=== PATIENT | female | born 1970 | race Caucasian/White ===

== ENCOUNTER → 2020-11-24 | Outpatient (CLI) | payer OTHER ==
[~2020-11-24] MED LIST: ATORVASTATIN CA10 MG PO; GLIMEPIRIDE4 MG PO; LEVOTHYROXINE50 MCG PO; VENTOLIN HFA18 GM INH
== END ==
LOC: US 07:52
PROVIDERS: ATTEND Surgery
DX: K80.20 Calculus of gallbladder without cholecystitis without obstruction (principal); K76.0 Fatty (change of) liver, not elsewhere classified
CPT/HCPCS: 76705

== ENCOUNTER → 2020-11-28 | Day surgery (SDC) | payer OTHER ==
[2020-11-24 08:44] LABS: BASOPHILS % 0.4 % (0.0-1.0); EOSINOPHILS # (AUTO) 0.3 (0.0-0.4); EOSINOPHILS % 2.4 % (0.0-6.0); HEMATOCRIT 41.9 % (34.2-44.1); HEMOGLOBIN 14.5 g/dL (12.0-16.0); LYMPHOCYTES # (AUTO) 2.2 (1.0-3.2); LYMPHOCYTES % 20.9 % (18.0-39.1); MEAN CORPUSCULAR HEMOGLOBIN 33.6 pg (28-32); MEAN CORPUSCULAR HGB CONC 34.6 g/dL (31-35); MONOCYTES # (AUTO) 0.6 (0.2-0.8); MONOCYTES % 5.7 % (4.4-11.3); NEUTROPHILS # (AUTO) 7.5 (2.1-6.9); NEUTROPHILS % 70.2 % (38.7-80.0); PLATELET COUNT 336 x10e3/uL (140-360); RED BLOOD COUNT 4.32 x10e6/uL (3.6-5.1); RED CELL DISTRIBUTION WIDTH 11.9 % (11.7-14.4)
[2020-11-24 08:49] LABS: CLARITY,URINE HAZY (CLEAR); COLOR,URINE YELLOW (YELLOW); KETONES,URINE NEGATIVE (NEGATIVE); LEUKOCYTE ESTERASE ,URINE NEGATIVE (NEGATIVE); NITRITE,URINE NEGATIVE (NEGATIVE); PROTEIN,URINE DIPSTICK 2+ (NEGATIVE); URINE UROBILINOGEN 0.2 mg/dL (0.2 - 1)
[2020-11-24 09:19] LABS: ALANINE AMINOTRANSFERASE 36 IU/L (0-55); ALBUMIN/GLOBULIN RATIO 0.9 (0.8-2.0); ALKALINE PHOSPHATASE 145 IU/L (40-150); BLOOD UREA NITROGEN 8 mg/dL (7-26); BUN/CREATININE RATIO 11 (6-25); CARBON DIOXIDE 25 mmol/L (22-29); CHLORIDE 99 mmol/L (98-107); CREATININE, SERUM 0.72 mg/dL (0.57-1.11); EST GLOMERULAR FILTRATION RATE > 60 ML/MIN (60-); GLUCOSE 183 mg/dL (74-118); SODIUM 135 mmol/L (136-145)
[~2020-11-28] MED LIST changes: +ACETAMINOPHEN 1000 MG/100 ML 100 ML IV ONE; +BUPIVACAINE 0.25%/EPI 30ML SDV INJ ONE; +DEXAMETHASONE SOD PHOS INJ 4 MG/ML VIAL ONE; +GLYCOPYRROLATE INJ 0.2 MG/ML VIAL ONE; +HYDROCODONE/APAP 7.5MG-325MG 1 EA TAB ONE; +KETOROLAC TROMETHAMINE 30 MG/ML VIAL ONE; +LIDOCAINE HCL 2% LOCAL INJ 5 ML SDV VIAL INJ ONE; +NEOSTIGMINE 1 MG/ML 10ML VIAL ONE; +ONDANSETRON HCL INJ 2MG/ML 2ML 2 MG/ML VIAL ONE; +PROPOFOL IV EMULSION 10 MG/ML 20 ML VIAL ONE; +ROCURONIUM BROMIDE 10 MG/ML 5ML VIAL IV ONE; +SEVOFLURANE INHAL SOLN 250 ML PEN BTL ONE
[2020-11-28 14:15] VITALS: BP 129/94
== END | disposition home or self-care (01) ==
LOC: OR 07:25
PROVIDERS: ATTEND Surgery
DX: K80.10 Calculus of gallbladder with chronic cholecystitis without obstruction (principal); K75.81 Nonalcoholic steatohepatitis (NASH); K82.8 Other specified diseases of gallbladder; E11.9 Type 2 diabetes mellitus without complications; E03.9 Hypothyroidism, unspecified; J45.998 Other asthma; E78.00 Pure hypercholesterolemia, unspecified; Z88.0 Allergy status to penicillin; Z91.040 Latex allergy status; Z01.810 Encounter for preprocedural cardiovascular examination; Z01.812 Encounter for preprocedural laboratory examination; Z20.822 Contact with and (suspected) exposure to COVID-19; Z79.84 Long term (current) use of oral hypoglycemic drugs
CPT/HCPCS: 36415 ×2; 47379; 47562; 80053; 81003; 82948; 85025; 88304; 88307; 88313; 93005; C1766; J0131; J1100; J1885; J2001; J2405; J2704; J2710; U0002

== ENCOUNTER 2022-08-08 16:26 | Inpatient (IN) | payer OTHER ==
[~2022-08-08] VITALS: Ht 162.6 cm; Wt 81.6 kg
[~2022-08-08 16:26] MED LIST changes: -ACETAMINOPHEN 1000 MG/100 ML 100 ML IV ONE; -BUPIVACAINE 0.25%/EPI 30ML SDV INJ ONE; -DEXAMETHASONE SOD PHOS INJ 4 MG/ML VIAL ONE; -GLYCOPYRROLATE INJ 0.2 MG/ML VIAL ONE; -HYDROCODONE/APAP 7.5MG-325MG 1 EA TAB ONE; -KETOROLAC TROMETHAMINE 30 MG/ML VIAL ONE; -LIDOCAINE HCL 2% LOCAL INJ 5 ML SDV VIAL INJ ONE; -NEOSTIGMINE 1 MG/ML 10ML VIAL ONE; -ONDANSETRON HCL INJ 2MG/ML 2ML 2 MG/ML VIAL ONE; -PROPOFOL IV EMULSION 10 MG/ML 20 ML VIAL ONE; -ROCURONIUM BROMIDE 10 MG/ML 5ML VIAL IV ONE; -SEVOFLURANE INHAL SOLN 250 ML PEN BTL ONE
[2022-08-08] MEDS ORDERED: Morphine 4mg INJECTION 4 MG/ML INJ IV STA (16:32)
[2022-08-08] MEDS ORDERED: ONDANSETRON HCL INJ 2MG/ML 2ML 2 MG/ML VIAL IV STA (16:32)
[2022-08-08 16:48] LABS: BASOPHILS % 0.3 % (0.0-1.0); EOSINOPHILS # (AUTO) 0.1 (0.0-0.4); EOSINOPHILS % 0.9 % (0.0-6.0); HEMATOCRIT 49.9 % (34.2-44.1); HEMOGLOBIN 16.8 g/dL (12.0-16.0); LYMPHOCYTES # (AUTO) 2.9 (1.0-3.2); LYMPHOCYTES % 22.4 % (18.0-39.1); MEAN CORPUSCULAR HEMOGLOBIN 36.1 pg (28-32); MEAN CORPUSCULAR HGB CONC 33.7 g/dL (31-35); MEAN CORPUSCULAR VOLUME 107.1 fL (81-99); MONOCYTES % 7.8 % (4.4-11.3); NEUTROPHILS # (AUTO) 8.8 (2.1-6.9); NEUTROPHILS % 68.1 % (38.7-80.0); PLATELET COUNT 322 x10e3/uL (140-360); RED BLOOD COUNT 4.66 x10e6/uL (3.6-5.1); RED CELL DISTRIBUTION WIDTH 12.2 % (11.7-14.4)
[2022-08-08 17:04] LABS: ALBUMIN 4.3 g/dL (3.5-5.0); ALBUMIN/GLOBULIN RATIO 0.8 (0.8-2.0); CALCIUM 10.5 mg/dL (8.4-10.2); CREATININE, SERUM 1.09 mg/dL (0.57-1.11)
[2022-08-08] MEDS ORDERED: LACTATED RINGER'S 1,000 ML IV ONE ×2 (17:45→18:30)
[2022-08-08 17:56] LABS: INR 0.96; PROTHROMBIN TIME 13.7 seconds (11.9-14.5)
[2022-08-08 17:57] LABS: PARTIAL THROMBOPLASTIN TIME 29.5 seconds (23.8-35.5)
[2022-08-08 18:33] LABS: CLARITY,URINE CLEAR (CLEAR); COLOR,URINE YELLOW (YELLOW); KETONES,URINE >=160 (NEGATIVE); LEUKOCYTE ESTERASE ,URINE NEGATIVE (NEGATIVE); NITRITE,URINE NEGATIVE (NEGATIVE); PROTEIN,URINE DIPSTICK 2+ (NEGATIVE); URINE UROBILINOGEN 0.2 mg/dL (0.2 - 1)
[2022-08-08 18:46] LABS: BACTERIA,URINE FEW /HPF; EPITHELIAL CELLS,URINE MANY /LPF; RBC,URINE 0-5 /HPF (0-5); WBC,URINE (MAN) 0-5 /HPF (0-5)
[2022-08-08] MEDS ORDERED: IOPAMIDOL 370 MG/ML 100 ML INFUS..BTL INJ ONE (19:23)
[2022-08-08 19:33] LABS: ABG HCO3 13 mmol/L (22-26); ABG PCO2 24 mmHg (35-45); ABG PH 7.33 (7.35-7.45); ABG PO2 96 mmHg (80-105); ABG TCO2 13
[2022-08-08] MEDS ORDERED: DEXTROSE 50% SYRINGE 50 ML IV PRN (19:45)
[2022-08-08 20:55] VITALS: BP 141/107
[2022-08-08 21:00] VITALS: BP 141/99
[2022-08-08] MEDS: INSULIN REGULAR, HUMAN 100 UNIT/1 ML SQ SCH (21:00)
[2022-08-08] MEDS ORDERED: PIOGLITAZONE HC45 MG PO (21:13)
[2022-08-08] MEDS ORDERED: JARDIANCE10 MG PO (21:13)
[2022-08-09] VITALS (7 sets, daily range): BP systolic 105–151; BP diastolic 78–90
[2022-08-09] MEDS ORDERED: ONDANSETRON HCL INJ 2MG/ML 2ML 2 MG/ML VIAL IV PRN (01:30)
[2022-08-09] MEDS: SODIUM CHLORIDE 0.9% 1000ML 1,000 ML IV SCH ×3 (01:48→16:52)
[2022-08-09 05:44] LABS: BASOPHILS % 0.3 % (0.0-1.0); EOSINOPHILS # (AUTO) 0.1 (0.0-0.4); HEMATOCRIT 44.8 % (34.2-44.1); HEMOGLOBIN 14.9 g/dL (12.0-16.0); LYMPHOCYTES # (AUTO) 2.4 (1.0-3.2); LYMPHOCYTES % 25.2 % (18.0-39.1); MEAN CORPUSCULAR HEMOGLOBIN 36.3 pg (28-32); MEAN CORPUSCULAR HGB CONC 33.3 g/dL (31-35); MONOCYTES # (AUTO) 0.9 (0.2-0.8); MONOCYTES % 9.2 % (4.4-11.3); NEUTROPHILS # (AUTO) 6.2 (2.1-6.9); NEUTROPHILS % 63.8 % (38.7-80.0); PLATELET COUNT 246 x10e3/uL (140-360); RED BLOOD COUNT 4.11 x10e6/uL (3.6-5.1)
[2022-08-09 06:17] LABS: ALBUMIN 3.5 g/dL (3.5-5.0); ALBUMIN/GLOBULIN RATIO 0.8 (0.8-2.0); ANION GAP 22.8 mmol/L (8-16); CREATININE, SERUM 0.83 mg/dL (0.57-1.11); MAGNESIUM 1.6 MG/DL (1.3-2.1); POTASSIUM 3.8 mmol/L (3.5-5.1)
[2022-08-09] MEDS: INSULIN REGULAR, HUMAN 100 UNIT/1 ML SQ SCH ×4 (07:30→21:00)
[2022-08-09] MEDS: LEVOTHYROXINE SODIUM 50 MCG TAB PO SCH (08:24)
[2022-08-09] MEDS: ATORVASTATIN 10 MG TAB PO SCH (08:25)
[2022-08-09] MEDS: EMPAGLIFLOZIN 10 MG TABLET PO SCH (09:00)
[2022-08-10] VITALS (8 sets, daily range): BP systolic 106–129; BP diastolic 73–95
[2022-08-10 06:20] LABS: ALANINE AMINOTRANSFERASE 14 IU/L (0-55); ALBUMIN 3.5 g/dL (3.5-5.0); ALBUMIN/GLOBULIN RATIO 0.8 (0.8-2.0); ALKALINE PHOSPHATASE 106 IU/L (40-150); ANION GAP 19.8 mmol/L (8-16); BLOOD UREA NITROGEN < 5 mg/dL (7-26); CALCIUM 9.1 mg/dL (8.4-10.2); CARBON DIOXIDE 16 mmol/L (22-29); CHLORIDE 101 mmol/L (98-107); CREATININE, SERUM 0.65 mg/dL (0.57-1.11); GLUCOSE 113 mg/dL (74-118); POTASSIUM 3.8 mmol/L (3.5-5.1); SODIUM 133 mmol/L (136-145)
[2022-08-10 06:23] LABS: BUN/CREATININE RATIO 8 (6-25)
[2022-08-10] MEDS: INSULIN REGULAR, HUMAN 100 UNIT/1 ML SQ SCH ×4 (07:30→21:00)
[2022-08-10] MEDS: LEVOTHYROXINE SODIUM 50 MCG TAB PO SCH (08:00)
[2022-08-10] MEDS: SODIUM CHLORIDE 0.9% 1000ML 1,000 ML IV SCH ×2 (08:00→17:01)
[2022-08-10] MEDS: ATORVASTATIN 10 MG TAB PO SCH (09:35)
[2022-08-10] MEDS: EMPAGLIFLOZIN 10 MG TABLET PO SCH (09:35)
[2022-08-10] MEDS ORDERED: ONDANSETRON HCL 4 MG ORAL DISINTEGRATING TAB PO PRN (11:30)
[2022-08-11] VITALS (10 sets, daily range): BP systolic 114–125; BP diastolic 73–88
[2022-08-11] MEDS: LEVOTHYROXINE SODIUM 50 MCG TAB PO SCH (06:42)
[2022-08-11] MEDS: INSULIN REGULAR, HUMAN 100 UNIT/1 ML SQ SCH ×4 (07:30→20:31)
[2022-08-11] MEDS: ATORVASTATIN 10 MG TAB PO SCH ×2 (09:00→16:46)
[2022-08-11] MEDS: SODIUM CHLORIDE 0.9% 1000ML 1,000 ML IV SCH ×3 (09:07→20:43)
[2022-08-11] MEDS: EMPAGLIFLOZIN 10 MG TABLET PO SCH (10:06)
[2022-08-11 10:24] LABS: BASOPHILS % 0.3 % (0.0-1.0); EOSINOPHILS # (AUTO) 0.1 (0.0-0.4); HEMATOCRIT 41.5 % (34.2-44.1); HEMOGLOBIN 14.6 g/dL (12.0-16.0); LYMPHOCYTES # (AUTO) 1.6 (1.0-3.2); LYMPHOCYTES % 22.2 % (18.0-39.1); MEAN CORPUSCULAR HGB CONC 35.2 g/dL (31-35); MEAN CORPUSCULAR VOLUME 102.2 fL (81-99); MONOCYTES # (AUTO) 0.4 (0.2-0.8); NEUTROPHILS # (AUTO) 4.9 (2.1-6.9); NEUTROPHILS % 69.1 % (38.7-80.0); PLATELET COUNT 204 x10e3/uL (140-360); RED BLOOD COUNT 4.06 x10e6/uL (3.6-5.1); RED CELL DISTRIBUTION WIDTH 12.2 % (11.7-14.4)
[2022-08-11 10:49] LABS: ANION GAP 16.9 mmol/L (8-16); BLOOD UREA NITROGEN < 5 mg/dL (7-26); CALCIUM 9.2 mg/dL (8.4-10.2); CARBON DIOXIDE 19 mmol/L (22-29); CHLORIDE 102 mmol/L (98-107); CREATININE, SERUM 0.65 mg/dL (0.57-1.11); GLUCOSE 157 mg/dL (74-118); SODIUM 135 mmol/L (136-145)
[2022-08-11 10:53] LABS: BUN/CREATININE RATIO 8 (6-25)
[2022-08-11 10:57] LABS: POTASSIUM 2.9 mmol/L (3.5-5.1)
[2022-08-11] MEDS ORDERED: POTASSIUM CHLORIDE 20 MEQ TAB CR PO NR (12:00)
[2022-08-11] MEDS: SODIUM BICARBONATE 650 MG TAB PO SCH (12:39)
[2022-08-11] MEDS ORDERED: POTASSIUM CHLORIDE 20MEQ/100ML 100 ML IV ONE (16:00)
[2022-08-12] VITALS: BP 113/80
[2022-08-12 04:00] VITALS: BP 115/75
[2022-08-12] MEDS: SODIUM CHLORIDE 0.9% 1000ML 1,000 ML IV SCH (05:49)
[2022-08-12] MEDS: LEVOTHYROXINE SODIUM 50 MCG TAB PO SCH (06:17)
[2022-08-12 06:46] LABS: ALANINE AMINOTRANSFERASE 15 IU/L (0-55); ALBUMIN 3.3 g/dL (3.5-5.0); ALBUMIN/GLOBULIN RATIO 0.9 (0.8-2.0); ALKALINE PHOSPHATASE 104 IU/L (40-150); ANION GAP 17.7 mmol/L (8-16); BLOOD UREA NITROGEN < 5 mg/dL (7-26); CALCIUM 9.1 mg/dL (8.4-10.2); CARBON DIOXIDE 22 mmol/L (22-29); CHLORIDE 101 mmol/L (98-107); CREATININE, SERUM 0.63 mg/dL (0.57-1.11); GLUCOSE 110 mg/dL (74-118); MAGNESIUM 1.8 MG/DL (1.3-2.1); POTASSIUM 3.7 mmol/L (3.5-5.1); SODIUM 137 mmol/L (136-145)
[2022-08-12 06:48] LABS: BUN/CREATININE RATIO 8 (6-25)
[2022-08-12] MEDS: INSULIN REGULAR, HUMAN 100 UNIT/1 ML SQ SCH (07:30)
[2022-08-12] MEDS: EMPAGLIFLOZIN 10 MG TABLET PO SCH (08:47)
[2022-08-12] MEDS: ATORVASTATIN 10 MG TAB PO SCH (08:47)
[2022-08-12] MEDS: SODIUM BICARBONATE 650 MG TAB PO SCH (08:47)
[2022-08-12 08:49] VITALS: BP 127/92
[2022-08-12 08:54] VITALS: BP 127/92
== END 2022-08-12 09:11 | disposition home or self-care (01) | DRG 641 ==
LOC: ER 16:31 → INTOOBSV 19:03 → ERHOLD 19:03 → MED/SURG2 20:50 → OBSVTOIN 08-12 09:04
PROVIDERS: ADMIT Internal Medicine; ATTEND Internal Medicine
DX: E87.20 Acidosis, unspecified (principal); E86.0 Dehydration; E78.5 Hyperlipidemia, unspecified; E11.9 Type 2 diabetes mellitus without complications; E03.9 Hypothyroidism, unspecified; E66.09 Other obesity due to excess calories; Z68.30 Body mass index [BMI] 30.0-30.9, adult; Z88.0 Allergy status to penicillin; Z91.040 Latex allergy status; Z20.822 Contact with and (suspected) exposure to COVID-19; Z79.4 Long term (current) use of insulin
CPT/HCPCS: 36415; 36600; 71046; 74177; 80048; 80053; 81001; 82805; 82948; 83605; 83690; 83735; 85025; 85379; 85610; 85730; 87040; 87086; 93005; 96372; 99284; G0378; J1817; J2270; J2405; J3480; J7030; J7121; Q9967